=== PATIENT | male | born 1965 | race Caucasian/White ===

== ENCOUNTER 2023-07-21 05:18 | Inpatient (IN) | payer BC ==
[~2023-07-21] VITALS: Ht 167.6 cm; Wt 88.7 kg
[2023-07-21 06:06] LABS: Urine Bacteria None Seen /hpf (None Seen)
[2023-07-21 06:07] LABS: Basophils # (auto) 0 10 ^3/uL (0-0.2); Basophils % (auto) 0.2 % (0.0-2.0); Eosinophils # (auto) 0.1 10 ^3/uL (0-0.8); Eosinophils % (auto) 0.5 % (0.0-7.0); Hematocrit 43.4 % (41.0-53.0); Hemoglobin 14.5 g/dL (13.5-17.5); Lymphocytes # (auto) 1.1 10 ^3/uL (0.4-5.4); Lymphocytes % (auto) 7.4 % (10.0-50.0); Mean Corpuscular Hemoglobin 31.2 pg (28.0-32.0); Mean Corpuscular Hgb Conc. 33.3 g/dL (32.0-36.0); Mean Corpuscular Volume 93.5 fL (80.0-100.0); Monocytes # (auto) 1.1 10 ^3/uL (0-1.3); Monocytes % (auto) 7.4 % (0.0-12.0); Neutrophils # (auto) 12.4 10 ^3/uL (1.6-8.6); Neutrophils % (auto) 84.5 % (37.0-80.0); Red Blood Cells 4.64 10^6/uL (4.5-5.90); Red Cell Distribution Width 13.1 % (11.8-14.3); White Blood Cell 14.7 10^3/uL (4.4-10.8)
[2023-07-21 06:17] LABS: Urine Blood TRACE /uL (Negative); Urine Clarity Clear (Clear); Urine Color Yellow (Yellow); Urine Hyaline Cast FEW /lpf (0 - 2); Urine Mucus FEW (None Seen); Urine Protein, UAD 3+ (Negative); Urine Specific Gravity 1.032 (1.001-1.035); Urine Urobilinogen Normal (Negative); Urine WBC 2 /hpf (0 - 3)
[2023-07-21 06:26] LABS: Alanine Aminotransferase 21 U/L (7-40); Albumin 5.1 g/dL (3.2-4.8); Alkaline Phosphatase 65 U/L (46-116); Anion Gap 8 (5-15); Aspartate Aminotransferase 13 U/L (13-40); BUN/Creatinine Ratio 10.9 (10.0-20.0); Bilirubin, Total 0.4 mg/dL (0.2-1.0); Blood Urea Nitrogen 17 mg/dL (9-23); Calcium 10.2 mg/dL (8.7-10.4); Carbon Dioxide 27 mmol/L (20-30); Chloride 104 mmol/L (98-107); Glucose 207 mg/dL (74-106); Potassium 4.7 mmol/L (3.5-5.1); Sodium 139 mmol/L (136-145); Total Protein 7.6 g/dL (5.7-8.2)
[2023-07-21] MEDS: SODIUM CHLORIDE 0.9% 1,000 ML IV ONE ×2 (06:45→07:42)
[2023-07-21] MEDS: metroNIDAZOLE 500MG/100ML 100 ML IV ONE (06:45)
[2023-07-21 07:22] LABS: Lactic Acid w/Reflex 2.4 mmol/L (0.4-2.0)
[2023-07-21] MEDS: MORPHINE SULFATE 4 MG/ML SYR/VIAL IV ONE (07:42)
[2023-07-21] MEDS: ONDANSETRON HCL 4 MG/2 ML VIAL IV ONE (07:42)
[2023-07-21] MEDS: cefTRIAXone 1GM/50ML D5W 50 ML IV ONE (07:43)
[2023-07-21] MEDS ORDERED: DEXTROSE (50%) 50ML SYRG IV PRN (09:15)
[2023-07-21] MEDS ORDERED: ACETAMINOPHEN 325 MG TAB PO PRN (09:15)
[2023-07-21] MEDS ORDERED: ATOR40TA52 PO (09:26)
[2023-07-21] MEDS: SODIUM CHLORIDE 0.9% 1,000 ML IV SCH (09:37)
[2023-07-21] MEDS: PANTOPRAZOLE 40 MG/10 ML VIAL INJ IV SCH (09:39)
[2023-07-21] MEDS: ENOXAPARIN SOD 40 MG/0.4 ML SYRINGE SC SCH (09:39)
[2023-07-21 09:48] LABS: Triglycerides 105 mg/dL (< 150)
[2023-07-21 09:49] LABS: LDL Cholesterol 74 mg/dL (< 100)
[2023-07-21 09:50] LABS: Cholesterol 151 mg/dL (< 200); HDL Cholesterol 59 mg/dL (40-59)
[2023-07-21] MEDS: ONDANSETRON HCL 4 MG/2 ML VIAL IV PRN (11:30)
[2023-07-21] MEDS: HYDROcodone-ACET 5/325MG TAB PO PRN (11:31)
[2023-07-21] MEDS: ACCU-CHEK COMFORT CURVE STRIP VI SCH (12:05)
[2023-07-21] MEDS: InsuLIN REG 1unit/0.01ml Soln (100units/ml) SC SCH (12:09)
[2023-07-21] MEDS: metroNIDAZOLE 500MG/100ML 100 ML IV SCH (14:06)
[2023-07-21 17:30] VITALS: BP 148/74; PULSE 88; RESP 18; RESP 20; TEMP 98.2; O2SAT 97; O2SAT 98
[2023-07-21 17:40] VITALS: BP 148/74; PULSE 88; RESP 20; TEMP 98.2; O2SAT 97
[2023-07-21] MEDS: MORPHINE SULFATE INJ 2 MG/ml SYRG IV PRN (17:51)
[2023-07-21] MEDS ORDERED: LISI10TA34 PO (18:04)
[2023-07-21] MEDS ORDERED: MAGN400T40 PO (18:04)
[2023-07-21] MEDS ORDERED: METF-370 PO (18:04)
[2023-07-21] MEDS ORDERED: SEMA2INJ3 SC (18:04)
[2023-07-21 20:00] VITALS: PULSE 87
[2023-07-21 21:00] VITALS: BP 118/72; PULSE 87; RESP 17; TEMP 97.9; O2SAT 99
[2023-07-22] VITALS (8 sets, daily range): BP systolic 127–152; BP diastolic 70–86; PULSE 74–88; RESP 17–18; TEMP 97.8–98.1; O2SAT 96–99
[2023-07-22 05:40] LABS: Basophils # (auto) 0 10 ^3/uL (0-0.2); Basophils % (auto) 0.1 % (0.0-2.0); Eosinophils # (auto) 0.1 10 ^3/uL (0-0.8); Hematocrit 35.6 % (41.0-53.0); Lymphocytes # (auto) 0.9 10 ^3/uL (0.4-5.4); Lymphocytes % (auto) 16.2 % (10.0-50.0); Mean Corpuscular Hemoglobin 31.8 pg (28.0-32.0); Mean Corpuscular Hgb Conc. 33.7 g/dL (32.0-36.0); Mean Corpuscular Volume 94.2 fL (80.0-100.0); Monocytes # (auto) 0.6 10 ^3/uL (0-1.3); Monocytes % (auto) 10.3 % (0.0-12.0); Neutrophils # (auto) 4.1 10 ^3/uL (1.6-8.6); Neutrophils % (auto) 71.4 % (37.0-80.0); Red Blood Cells 3.78 10^6/uL (4.5-5.90); Red Cell Distribution Width 13.6 % (11.8-14.3); White Blood Cell 5.8 10^3/uL (4.4-10.8)
[2023-07-22 05:57] LABS: Alanine Aminotransferase 15 U/L (7-40); Albumin 4.1 g/dL (3.2-4.8); Alkaline Phosphatase 53 U/L (46-116); Anion Gap 8 (5-15); Aspartate Aminotransferase 11 U/L (13-40); BUN/Creatinine Ratio 15.7 (10.0-20.0); Blood Urea Nitrogen 17 mg/dL (9-23); Calcium 9.3 mg/dL (8.7-10.4); Carbon Dioxide 25 mmol/L (20-30); Chloride 109 mmol/L (98-107); Glucose 113 mg/dL (74-106); Potassium 4.3 mmol/L (3.5-5.1); Sodium 142 mmol/L (136-145)
[2023-07-22 05:58] LABS: Bilirubin, Total 0.4 mg/dL (0.2-1.0); Total Protein 6.1 g/dL (5.7-8.2)
[2023-07-22] MEDS: cefTRIAXone 1GM/50ML D5W 50 ML IV SCH (08:59)
[2023-07-22 12:53] LABS: Triglycerides 162 mg/dL (< 150)
[2023-07-22 12:54] LABS: LDL Cholesterol 70 mg/dL (< 100)
[2023-07-22 12:55] LABS: Cholesterol 144 mg/dL (< 200); HDL Cholesterol 43 mg/dL (40-59)
[2023-07-22] MEDS: FLORASTOR (S. BOULARDII) 250 MG CAP PO SCH (21:04)
[2023-07-22] MEDS: metroNIDAZOLE 500 MG TAB PO SCH (21:04)
[2023-07-23] VITALS (10 sets, daily range): BP systolic 135–176; BP diastolic 77–91; PULSE 80–94; RESP 16–18; TEMP 97.5–98.5; O2SAT 96–98
[2023-07-23] MEDS: hydrALAZINE HCL 20 MG/ML VL IV PRN (09:50)
[2023-07-23] MEDS: LISINOPRIL 5 MG TAB PO SCH (13:24)
[2023-07-23] MEDS: VANCOMYCIN HCL 125 MG CAP PO SCH (13:24)
[2023-07-24] VITALS (7 sets, daily range): BP systolic 110–162; BP diastolic 68–87; PULSE 77–105; RESP 17–18; TEMP 98.2–98.5; O2SAT 96–98
[2023-07-24] MEDS: ACETAMINOPHEN 325 MG TAB PO PRN (08:03)
[2023-07-24] MEDS: MAGNESIUM OXIDE 400 MG TAB PO SCH (08:03)
[2023-07-24] MEDS: KETOROLAC TROMETH 30 MG/ML 1ML VIAL IV ONE (11:25)
[2023-07-24 11:32] LABS: Basophils # (auto) 0 10 ^3/uL (0-0.2); Basophils % (auto) 0.1 % (0.0-2.0); Eosinophils # (auto) 0.3 10 ^3/uL (0-0.8); Eosinophils % (auto) 2.8 % (0.0-7.0); Hematocrit 37.9 % (41.0-53.0); Hemoglobin 12.9 g/dL (13.5-17.5); Lymphocytes # (auto) 0.8 10 ^3/uL (0.4-5.4); Lymphocytes % (auto) 9.1 % (10.0-50.0); Mean Corpuscular Hgb Conc. 34.1 g/dL (32.0-36.0); Mean Corpuscular Volume 93.9 fL (80.0-100.0); Monocytes # (auto) 0.6 10 ^3/uL (0-1.3); Monocytes % (auto) 6.5 % (0.0-12.0); Neutrophils # (auto) 7.3 10 ^3/uL (1.6-8.6); Neutrophils % (auto) 81.5 % (37.0-80.0); Red Blood Cells 4.04 10^6/uL (4.5-5.90); Red Cell Distribution Width 13.5 % (11.8-14.3)
[2023-07-24 11:38] LABS: Chloride 104 mmol/L (98-107); Potassium 3.9 mmol/L (3.5-5.1)
[2023-07-24 11:39] LABS: Anion Gap 5 (5-15); Calcium 9.3 mg/dL (8.5-10.1); Carbon Dioxide 26 mmol/L (20-30)
[2023-07-24 11:44] LABS: BUN/Creatinine Ratio 8.7 (10.0-20.0); Blood Urea Nitrogen 8 mg/dL (9-23); Glucose 175 mg/dL (74-106)
[2023-07-24 12:09] LABS: Sodium 135 mmol/L (136-145)
[2023-07-24] MEDS ORDERED: LATA0.008 EACHEYE (12:14)
[2023-07-24] MEDS ORDERED: BRIM0.159 OP (12:14)
[2023-07-24] MEDS: BRIMONIDINE 0.2% OPTH Soln 5ml EACHEYE ONE (22:03)
[2023-07-24] MEDS: LATANOPROST 0.005 % OPTH(EYE) SOL 2.5ML EACHEYE SCH (22:03)
[2023-07-25] VITALS (7 sets, daily range): BP systolic 108–162; BP diastolic 66–82; PULSE 82–90; RESP 17–18; TEMP 36.8; O2SAT 95–98
[2023-07-25] MEDS: LISINOPRIL 20 MG TAB PO SCH (10:04)
[2023-07-26 01:00] VITALS: BP 142/82; PULSE 86; RESP 18; TEMP 98.1; O2SAT 96
[2023-07-26 05:00] VITALS: BP 127/85; PULSE 57; RESP 18; TEMP 98.4; O2SAT 98
[2023-07-26 07:30] VITALS: BP 162/82; TEMP 36.9
[2023-07-26 08:00] VITALS: BP 148/86; PULSE 88; RESP 20; TEMP 98.3; O2SAT 96
[2023-07-26] MEDS ORDERED: VANC125PO PO (09:30)
[2023-07-26 09:33] VITALS: BP 148/86; PULSE 88; RESP 20; TEMP 98.3; O2SAT 96
[2023-07-26 12:00] VITALS: BP 148/90; PULSE 85; RESP 20; TEMP 98.2; O2SAT 97
== END 2023-07-26 14:00 | disposition home or self-care (01) | DRG 872 ==
LOC: ER 05:18 → TELE 09:20 → TELE-CENTR 17:58 → CENTRAL 07-24 22:53
PROVIDERS: ADMIT Registered Nurse; ATTEND Internal Medicine
DX: A41.89 Other specified sepsis (principal); A04.72 Enterocolitis due to Clostridium difficile, not specified as recurrent; N17.9 Acute kidney failure, unspecified; E78.5 Hyperlipidemia, unspecified; I10 Essential (primary) hypertension; E86.0 Dehydration; K21.9 Gastro-esophageal reflux disease without esophagitis; E11.9 Type 2 diabetes mellitus without complications; K57.30 Diverticulosis of large intestine without perforation or abscess without bleeding; E66.9 Obesity, unspecified; Z68.31 Body mass index [BMI] 31.0-31.9, adult; Z90.49 Acquired absence of other specified parts of digestive tract; Z82.49 Family history of ischemic heart disease and other diseases of the circulatory system; Z83.3 Family history of diabetes mellitus
CPT/HCPCS: 36415; 74176; 76705; 80048; 80053; 80061; 81001; 82962; 83036; 83605; 83690; 83735; 85025; 87040; 87045; 87427; 87493; 93005; 96365; 96367; 96375; C9113; G0378; J1815; J1885; J2405; J3490